=== PATIENT | female | born 1960 | race Caucasian/White ===

== ENCOUNTER 2017-01-07 09:20 | Emergency (ER) | payer BC ==
[2017-01-07 09:34] VITALS: BP 148/86
[2017-01-07] MEDS ORDERED: predniSONE TAB* 20 MG PO ONE (10:29)
--- NOTE | 2017-01-07 10:31 | UC ---
Smooth [place] Benjamin, scribed for Chago Crowder MD on 01/07/17 at 1013 . Skin Complaint HPI - HPI Summary HPI Summary: 56yo female c/o diffuse itchy red rashes since last night. Pt denies any med changes or environmental exposures. Pt was recently recovered from PNA. Finished Abx treatment. Hx includes shingles, HTN, and right ankle fx. - History of Current Complaint Chief Complaint: UCRash Time Seen by Provider: 01/07/17 10:07 Stated Complaint: RASH Hx Obtained From: Patient Onset/Duration: Sudden Onset, Lasting Hours, Still Present Skin Exposure Onset/Duration: Hours Ago Timing: Constant Onset Severity: Mild Current Severity: Mild Location: Diffuse Character: Pruritus, Redness Aggravating: Nothing Alleviating: Nothing Associated Signs & Symptoms: Positive: Negative - Allergy/Home Medications Allergies/Adverse Reactions: Allergies Allergy/AdvReac Type Severity Reaction Status Date / Time Hydrocodone [From Vicodin] Allergy Nausea And Verified 07/01/15 13:49 Vomiting Home Medications: Home Medications Tramadol HCl [Ultram] PRN 01/07/17 [History] Review of Systems Constitutional: Negative Skin: Rash - diffuse red rashes Eyes: Negative ENT: Negative Respiratory: Negative Cardiovascular: Negative Gastrointestinal: Negative Genitourinary: Negative Motor: Negative Neurovascular: Negative Musculoskeletal: Negative Neurological: Negative Psychological: Negative All Other Systems Reviewed And Are Negative: Yes PMH/Surg Hx/FS Hx/Imm Hx Cardiovascular History: Hypertension Respiratory History: Pneumonia - Surgical History Surgical History: Yes Surgery Procedure, Year, and Place: OOPHERECTOMY 1995. HYSTERECTOMY 1995 - Family History Known Family History: Positive: Hypertension, Other - Parkinson's Negative: Cardiac Disease, Diabetes - Social History Occupation: Employed Full-time Lives: With Family - Alcohol Use: Daily Alcohol Amount: 1-2/DARYL Substance Use Type: None Smoking Status (MU): Former Smoker - over 20 years ago Have You Smoked in the Last Year: No When Did the Patient Quit Smoking/Using Tobacco: 30 yrs ago Physical Exam Triage Information Reviewed: Yes Appearance: Well-Appearing, No Pain Distress, Well-Nourished Vital Signs: Initial Vital Signs Temp 98.6 F 01/07/17 09:31 Pulse 103 01/07/17 09:31 Resp 18 01/07/17 09:31 BP 148/86 01/07/17 09:31 Pulse Ox 100 01/07/17 09:31 Vital Signs Reviewed: Yes Eye Exam: Normal ENT: Positive: Normal ENT inspection, Hearing grossly normal, Pharyngeal erythema, TMs normal. Negative: Nasal drainage Neck: Positive: Supple, Nontender Respiratory: Positive: Chest non-tender, Lungs clear, Normal breath sounds, No respiratory distress Cardiovascular: Positive: RRR, No Murmur Abdomen Description: Positive: Nontender, Soft Bowel Sounds: Positive: Present Musculoskeletal: Positive: Strength Intact, ROM Intact Neurological: Positive: Alert, Muscle Tone Normal Psychological: Positive: Age Appropriate Behavior Skin: Positive: rashes - Raised, erythemous patches of 2-3cm in diameter on arms , legs, and trunk that blanching. Course/Dx - Course Course Of Treatment: Reviewed medication lists. - Diagnoses Provider Diagnoses: 1. Hypertension - BP not controlled at this point. RASH, PROBABLE ALLERGIC REACTION Discharge - Discharge Plan Condition: Stable Disposition: HOME Prescriptions: predniSONE TAB* [Deltasone TAB*] 40 mg PO DAILY #8 tab Patient Education Materials: Acute Rash (ED) Referrals: Virginie Novak MD [Primary Care Provider] - Additional Instructions: FOLLOW UP WITH YOUR DOCTOR. GET REEVALUATED FOR ANY WORSENING OF YOUR CONDITION; WORSENING OF RASH, FEVER, YOU FEEL ILL OR QUESTIONS OR CONCERNS. The documentation as recorded by the Smooth marshall Benjamin accurately reflects the service I personally performed and the decisions made by me, Chago Crowder MD.
== END 2017-01-07 10:41 | disposition home or self-care (01) ==
LOC: UCEAST 09:20
DX: R21 Rash and other nonspecific skin eruption (principal); I10 Essential (primary) hypertension; Z88.5 Allergy status to narcotic agent; Z87.01 Personal history of pneumonia (recurrent); Z87.891 Personal history of nicotine dependence
CPT/HCPCS: 99202; G0463; J7512

== ENCOUNTER 2017-01-08 09:49 | Emergency (ER) | payer BC ==
[2017-01-08 10:05] VITALS: BP 166/86
--- NOTE | 2017-01-08 11:09 | UC ---
Allergic Reaction HPI - HPI Summary HPI Summary: Woke in the middle of the night night/Tuesday morning with itchy rash all over. Hd started new deodorant and came into UC yesterday, was given prednisone and they decided it was new deodorant. Pt takes tramadol at bedtime and remembered last night that her pill looks different because of different generic. She took pill last night and felt much worse in the middle of the night again, feeling better after prednisone today. Spoke with pharmacist today and pharmacy can go back to old version after they order it on Tuesday, but pt needs pain Rx to bridge before Tuesday. Only takes a bedtime dose. Uses pain medicine for persistent pain after ankle fx 1 year ago with surgical fixation. - History of Current Complaint Chief Complaint: UCRash Stated Complaint: RASH Time Seen by Provider: 01/08/17 10:40 Hx Obtained From: Patient ?: No Onset/Duration: Sudden Onset, Lasting Days Severity Initially: Moderate Severity Currently: Moderate Location: Diffuse Character: Hives Alleviating Factor(s): Nothing - steroids Associated Signs And Symptoms: Positive: Rash. Negative: Chest Pain, Cough Wheezing, Difficulty Breathing, Hoarseness, Nausea, Syncope, Throat Tightening, Vomiting - Allergies/Home Medications Allergies/Adverse Reactions: Allergies Allergy/AdvReac Type Severity Reaction Status Date / Time Hydrocodone [From Vicodin] Allergy Nausea And Verified 01/08/17 09:54 Vomiting PMH/Surg Hx/FS Hx/Imm Hx Previously Healthy: Yes - Surgical History Surgical History: Yes Surgery Procedure, Year, and Place: OOPHERECTOMY 1995. HYSTERECTOMY 1995 - Family History Known Family History: Positive: Hypertension, Other - Parkinson's Negative: Cardiac Disease, Diabetes - Social History Occupation: Employed Full-time Alcohol Use: Daily Alcohol Amount: 1-2/DARYL Substance Use Type: None Smoking Status (MU): Former Smoker Have You Smoked in the Last Year: No When Did the Patient Quit Smoking/Using Tobacco: 30 yrs ago Review of Systems Constitutional: Negative Skin: Rash Eyes: Negative ENT: Negative Respiratory: Negative Cardiovascular: Negative Gastrointestinal: Negative Genitourinary: Negative Motor: Negative Neurovascular: Negative Musculoskeletal: Negative Neurological: Negative Psychological: Negative All Other Systems Reviewed And Are Negative: Yes Physical Exam Triage Information Reviewed: Yes Appearance: Well-Appearing, No Pain Distress, Well-Nourished Vital Signs: Initial Vital Signs Temp 98.3 F 01/08/17 10:04 Pulse 115 01/08/17 10:04 Resp 16 01/08/17 10:04 BP 166/86 01/08/17 10:04 Pulse Ox 100 01/08/17 10:04 Vital Signs Reviewed: Yes Eye Exam: Normal Eyes: Positive: Conjunctiva Clear ENT Exam: Normal ENT: Positive: Normal ENT inspection, Hearing grossly normal, Pharynx normal, TMs normal Dental Exam: Normal Neck exam: Normal Neck: Positive: Supple, Nontender, No Lymphadenopathy Respiratory Exam: Normal Respiratory: Positive: Chest non-tender, Lungs clear, Normal breath sounds, No respiratory distress, No accessory muscle use Cardiovascular: Positive: No Murmur, Tachycardia Musculoskeletal Exam: Normal Neurological Exam: Normal Neurological: Positive: Alert Psychological Exam: Normal Skin Exam: Other - itchy rash all over arms, legs, neck, groin Allergic Reaction Course/Dx - Differential Dx/Diagnosis Provider Diagnoses: Urticaria. likely drug reaction. elevated blood pressure due to corticosteroid use Discharge - Discharge Plan Condition: Stable Disposition: HOME Prescriptions: oxyCODONE/Acetamin 5/325 MG* [Percocet 5/325 TAB*] 1 tab PO BEDTIME PRN #3 tab MDD 1 PRN Reason: Pain Patient Education Materials: General Allergic Reaction (ED) Referrals: Virginie Novak MD [Primary Care Provider] - Additional Instructions: Continue the prednisone, and you can also take a non-drowsy antihistamine in the morning and diphenhydramine (benadryl) in the evening. Please follow up with your orthopedist as previously scheduled.
== END 2017-01-08 11:11 | disposition home or self-care (01) ==
LOC: UCEAST 09:49
DX: L50.9 Urticaria, unspecified (principal); R03.0 Elevated blood-pressure reading, without diagnosis of hypertension
CPT/HCPCS: 99212; G0463

== ENCOUNTER 2017-04-04 06:04 | Day surgery (SDC) | payer BC ==
--- NOTE | 2017-03-21 09:48 | HP ---
PREOPERATIVE HISTORY AND PHYSICAL: DATE OF ADMISSION: 04/04/17 PROVIDER: Dr. Patrick Yanez * (DICTATED BY JOE ASHLEY) CHIEF COMPLAINT: Right ankle pain. HISTORY OF PRESENT ILLNESS: Mahnaz is a 56-year-old female who was followed by Dr. Yanez for a right ankle bimalleolar fracture. She underwent open reduction internal fixation on 03/24/15. She states that she has done relatively well since the time of her injury; however, anytime she tries to increase her activity and do any sort of significant exercise, she has an increase in ankle pain. She states that this is affecting her quality of life and is interested in surgical intervention for removal of the hardware. PAST MEDICAL HISTORY: Hypertension, attention deficit disorder, and a vitamin D deficiency. PAST SURGICAL HISTORY: Hysterectomy, oophorectomy, and right ankle ORIF. CURRENT MEDICATIONS: 1. Tramadol 50 mg 1 tab p.o. t.i.d. p.r.n. pain. 2. Naproxen 500 mg 1 tab p.o. b.i.d. p.r.n. pain. 3. Amlodipine besylate 5 mg p.o. q. day. 4. Estradiol 1 mg p.o. q. day. 5. Concerta 36 mg 1 p.o. q. day. 6. Caltrate 600 1500 mg by mouth q. day. 7. Multivitamin daily. ALLERGIES: HYDROCODONE. FAMILY HISTORY: Positive for a history of cancer. SOCIAL HISTORY: She lives with her . 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 She has never smoked, she occasionally consumes alcohol, and she does exercise regularly. REVIEW OF SYSTEMS: General: Negative for recent hospitalizations, fevers, chills, night sweats, or weight loss. HEENT: Negative for headache, lightheadedness, balance problems, hearing changes, vision changes, sore throat , runny nose, or frequent nosebleeds. Cardiovascular: Negative for chest or arm pain with exertion, heart attack, heart murmur, or heart palpitations. Negative for embolism or deep vein thrombosis. Respiratory: Negative for chronic cough, shortness of breath with exertion, asthma, or COPD. Gastrointestinal: Negative for heartburn, nausea, vomiting, diarrhea, constipation, or GERD. Genitourinary: Negative for nighttime urination, frequency of urination, urinary tract infections, or kidney problems. Musculoskeletal: Negative for chronic back pain, positive for right ankle fracture. Skin: Negative for rashes, lesions, lumps, or sores. Neurologic: Negative for seizure, stroke, epilepsy, depression, or anxiety. Endocrine: Negative for diabetes or thyroid problems. Hematology: Negative for easy bleeding, bruising, or anemia. PHYSICAL EXAMINATION GENERAL: She is a well-developed, well-nourished, pleasant female in no acute distress at rest. She is alert and oriented x3 with appropriate mood and affect. VITAL SIGNS: The patient is 5 feet 5 inches, 162 pounds. Blood pressure 122/80 , respirations 18, temperature 97.1, pulse is 78. HEENT: Normocephalic, atraumatic. Hearing and vision are grossly intact. NECK: Her trachea is midline. RESPIRATORY: Lungs are clear to auscultation bilaterally. No wheezes, rales, or rhonchi. CARDIOVASCULAR: Regular rate and rhythm. No murmurs, rubs, or gallops. Normal S1, S2. ABDOMEN: Soft, nondistended, nontender. Normal bowel sounds. EXTREMITIES: Exam of the right lower extremity, skin is intact without abrasions or open wounds. She has well-healed incision to the medial and lateral aspects of the ankle. There is no edema, ecchymosis, or gross deformities about the ankle. She has some mild tenderness to palpation to the distal fibula and medial malleolus. She has good hindfoot range of motion with 5/5 strength. Her sensation to light touch is intact. She has a 2+ dorsalis pedis pulse. IMPRESSION: Painful hardware of the right ankle. PLAN: The patient is to undergo right ankle hardware removal by Dr. Yanez on 04/04/17. The risks, benefits, and postoperative course were discussed with the patient at length and she would like to proceed. All of her questions were answered to her full satisfaction. A prescription for oxycodone was sent to her pharmacy for pain. We will follow up with the patient in the postoperative phase. JOE ASHLEY [id number]/[facility] #: [id number] TATIANA
[~2017-04-04 06:04] MED LIST: Buffered Lidocaine 0.9% SYRIN* 5 ML/SYR SYRINGE INTRADERM ONE; Dexamethasone IV* 4 MG/ML 1 ML (4 MG) IV SLOW PU ONE; Famotidine IV* 10 MG/ML 2 ML (20 mg) IV ONE
[2017-04-04] MEDS ORDERED: Buffered Lidocaine 0.9% SYRIN* 5 ML/SYR SYRINGE ONE (06:53)
[2017-04-04] MEDS ORDERED: Famotidine IV* 10 MG/ML 2 ML (20 mg) ONE (06:53)
[2017-04-04] MEDS ORDERED: Dexamethasone IV* 4 MG/ML 1 ML (4 MG) ONE ×2 (06:53→07:02)
[2017-04-04] MEDS ORDERED: ceFAZolin 2 GM PREMIX (*) 50 ML IVPB ONE (06:53)
[2017-04-04] MEDS ORDERED: Ondansetron INJ* 2 MG/ML VIAL ONE (07:02)
[2017-04-04] MEDS ORDERED: fentaNYL* 50 MCG/ML 2 ML VIAL (100 MCG VIAL) ONE ×3 (07:02→09:00)
[2017-04-04] MEDS ORDERED: Midazolam* 1 MG/ML 5 ML VIAL (5 MG) ONE (07:02)
[2017-04-04] MEDS ORDERED: Propofol* 10 MG/ML 20 ML BTL IV PUSH ONE (07:02)
[2017-04-04] MEDS ORDERED: Lidocaine 2% PF * 5 ML VIAL ONE (07:02)
[2017-04-04] MEDS ORDERED: Ketorolac INJ* 30 MG/ML 1 ML VIAL ONE (07:02)
[2017-04-04] MEDS ORDERED: KETAMINE HCL* 50 MG/ML 10 ML VIAL ONE (07:02)
[2017-04-04] MEDS ORDERED: Bupivacaine 0.5% SDV PF* 30 ML VIAL ONE (07:33)
[2017-04-04] MEDS ORDERED: Scopolamine 1.5 mg* PATCH ONE (07:41)
[2017-04-04] MEDS ORDERED: Metoclopramide IV* 5 MG/ML 2 ML VIAL ONE (07:41)
[2017-04-04] MEDS ORDERED: HYDROmorphone* 1 MG/ML 1 ML SYR IV PRN (08:25)
[2017-04-04] MEDS ORDERED: DiMENhydriNATE IV* 50 MG/ML VIAL IV PUSH PRN (08:25)
[2017-04-04] MEDS: fentaNYL* 50 MCG/ML 2 ML VIAL (100 MCG VIAL) IV PRN ×2 (09:05→09:15)
[2017-04-04 10:13] VITALS: BP 134/72
--- NOTE | 2017-04-05 04:40 | OP ---
DATE OF OPERATION: 04/04/17 [facility] DATE OF : 62 SURGEON: Patrick Yanez MD [employer] RE[employer]ERATION TECHNICIAN: Lizzy Eddy PA-C ANESTHESIOLOGIST: Isaias Pitt MD ANESTHESIA: General PRE-OP DIAGNOSIS: Right osteochondral defect, painful hardware, right bimalleolar ankle fracture. POST-OP DIAGNOSIS: OPERATIVE PROCEDURE: Osteochondral debridement with arthroscopy and removal of hardware, right medial malleolus and lateral malleolus. DESCRIPTION OF PROCEDURE: The patient was taken to the operating room where thigh tourniquet was applied. We made an anteromedial and anterolateral ankle portal after infusing 20 cc of saline into the joint. A 2.9-mm shaver blade was used to debride the posteromedial osteochondral defect. Good synovectomy was performed as well as debridement down to fresh subchondral bone. We then opened up medially just behind the portal to expose the two 4.0 mm screws, one with a washer. These were removed with appropriate screwdriver. The lateral tibia was opened longitudinally, where both plates were exposed and removed with small fragment screwdriver. We irrigated both medial and lateral wounds closing with Vicryl and sukumar and a compression dressing plaster splint. [id number]/[facility] #: [id number] [facility]
== END 2017-04-04 10:42 | disposition home or self-care (01) ==
LOC: OR 06:04
PROVIDERS: ATTEND Orthopaedic Surgery
DX: M94.8X7 Other specified disorders of cartilage, ankle and foot (principal); T84.84XA Pain due to internal orthopedic prosthetic devices, implants and grafts, initial encounter; Y79.2 Prosthetic and other implants, materials and accessory orthopedic devices associated with adverse incidents; S82.841D Displaced bimalleolar fracture of right lower leg, subsequent encounter for closed fracture with routine healing; X58.XXXD Exposure to other specified factors, subsequent encounter; I10 Essential (primary) hypertension; F98.8 Other specified behavioral and emotional disorders with onset usually occurring in childhood and adolescence; E55.9 Vitamin D deficiency, unspecified; Z88.5 Allergy status to narcotic agent
CPT/HCPCS: 88300; A9270-GY; J0690; J1100; J1885; J2250; J2405; J2704; J2765; J3010

== ENCOUNTER 2019-01-08 07:03 | Emergency (ER) | payer BC ==
[2019-01-08 07:16] VITALS: BP 160/95
--- NOTE | 2019-01-08 08:07 | ED ---
Lower Extremity - HPI Summary HPI Summary: 58 yr old female with the complaint of right ankle pain. Onset gradual, but worse since yesterday after falling in a step class. The patient states she has had a couple ankle surgeries, and also removal of hardware from same ankle by Dr Phan. The patient states that she has had increased aching of late over the lateral ankle and yesterday she fell breaking her fall with her arm and landing on right hip. She did not twist her ankle. She has no other complaints. - History of Current Complaint Chief Complaint: UCLowerExtremity Stated Complaint: ANKLE INJURY Time Seen by Provider: 01/08/19 07:19 Pain Intensity: 2 - Allergies/Home Medications Allergies/Adverse Reactions: Allergies Allergy/AdvReac Type Severity Reaction Status Date / Time hydrocodone AdvReac Nausea And Verified 01/08/19 07:16 Vomiting Home Medications: Home Medications Aspirin 650 mg PO ONCE PRN 01/08/19 [History Confirmed 01/08/19] PMH/Surg Hx/FS Hx/Imm Hx Cardiovascular History: Reports: Hx Hypertension - controlled with mediaction Respiratory History: Reports: Other Respiratory Problems/Disorders - pt. had pneumonia December 2016 Sensory History: Reports: Hx Contacts or Glasses - READING Denies: Hx Hearing Aid Opthamlomology History: Reports: Hx Contacts or Glasses - READING Neurological History: Reports: Other Neuro Impairments/Disorders - ADHD, controlled with medication - Cancer History Cancer Type, Location and Year: Ovarian CA Hx Chemotherapy: No Hx Radiation Therapy: No - Surgical History Surgery Procedure, Year, and Place: OOPHERECTOMY 1995. HYSTERECTOMY 1995. repair right ankle Mar 2015. Right ankle hardware removal 2016 Hx Anesthesia Reactions: No Infectious Disease History: No Infectious Disease History: Reports: Hx Shingles Denies: Hx Clostridium Difficile, Hx Hepatitis, Hx Human Immunodeficiency Virus (HIV), Hx of Known/Suspected MRSA, Hx Tuberculosis, Hx Known/Suspected VRE , Hx Known/Suspected VRSA, History Other Infectious Disease, Traveled Outside the [place] in Last 30 Days - Family History Known Family History: Positive: Hypertension, Other - Parkinson's Negative: Cardiac Disease, Diabetes - Social History Alcohol Use: Daily Alcohol Amount: 1-2 drinks daily (wine) Substance Use Type: Reports: None Hx Tobacco Use: No Smoking Status (MU): Former Smoker Amount Used/How Often: smoked very socially for less than 10 yrs, less than 1/2 ppd at most Have You Smoked in the Last Year: No Review of Systems Constitutional: Negative Positive: Other - lateral right ankle pain All Other Systems Reviewed And Are Negative: Yes Physical Exam Triage Information Reviewed: Yes Vital Signs On Initial Exam: Initial Vitals Temp Pulse Resp BP Pulse Ox 98 F 105 18 160/95 100 01/08/19 07:09 01/08/19 07:09 01/08/19 07:09 01/08/19 07:09 01/08/19 07:09 Vital Signs Reviewed: Yes Appearance: Positive: Well-Appearing, No Pain Distress Skin: Positive: Warm, Skin Color Reflects Adequate Perfusion Eyes: Positive: Normal, EOMI ENT: Positive: Normal ENT inspection Cardiovascular: Positive: Pulses are Symmetrical in both Upper and Lower Extremities Abdomen Description: Negative: Distended Musculoskeletal: Positive: Other - right ankle without redness. There is minimal STS. INtact pulses DP and PT. SHe has some lateral ankle tenderness over lat malleolus. Neurological: Positive: Sensory/Motor Intact Psychiatric: Positive: Normal Diagnostics - Vital Signs Vital Signs Temp Pulse Resp BP Pulse Ox 01/08/19 07:09 98 F 105 18 160/95 100 - Laboratory Lab Statement: Any lab studies that have been ordered have been reviewed, and results considered in the medical decision making process. - Radiology right ankle Radiology Interpretation Completed By: Radiologist - NAD, chronic changes. Lower Extremity Course/Dx - Course Course Of Treatment: 58 yr old with complex right ankle history. She has crutches. WIll give gel splint. She knows to call Dr Phan today for follow up. - Diagnoses Provider Diagnoses: Hypertension, Right ankle pain Discharge - Sign-Out/Discharge Documenting (check all that apply): Patient Departure All imaging exams completed and their final reports reviewed: Yes - Discharge Plan Condition: Good Disposition: HOME Patient Education Materials: Ankle Sprain (ED), Hypertension (ED) Forms: *Work Release Referrals: Virginie Novak MD [Primary Care Provider] - 2 Days Patrick Yanez MD [Medical Doctor] - - Billing Disposition and Condition Condition: GOOD Disposition: Home
== END 2019-01-08 08:31 | disposition home or self-care (01) ==
LOC: UCEAST 07:03
DX: M25.571 Pain in right ankle and joints of right foot (principal); I10 Essential (primary) hypertension; W19.XXXA Unspecified fall, initial encounter; Y93.A3 Activity, aerobic and step exercise; Y92.9 Unspecified place or not applicable; Z87.39 Personal history of other diseases of the musculoskeletal system and connective tissue; Z98.890 Other specified postprocedural states; Z87.891 Personal history of nicotine dependence
CPT/HCPCS: 99213; G0463

== ENCOUNTER 2019-05-02 14:45 | Emergency (ER) | payer BC ==
[2019-05-02 15:22] VITALS: BP 142/81
--- NOTE | 2019-05-02 15:41 | UC ---
Dental HPI - HPI Summary HPI Summary: 58 year old female with PMH + for HTn presents with 1 month of dental pain. Was mild, attempted to see dentist however had not been seen in 3 years due to no insurance, stated dentist wanted to do cleaning as well as exam. Past 3-4 days, patient noted something "falling out" of tooth with increased pain with chewing afterwards. Noted another "piece" falling out after chewing gum. Has appt to be seen next thurs. Denies fever/ chills/ swelling/ redness. - History of Current Complaint Chief Complaint: UCDentalProblem Stated Complaint: DENTAL PAIN Time Seen by Provider: 05/02/19 15:28 Hx Obtained From: Patient ?: No Onset/Duration: Sudden Onset, Lasting Days Severity: Severe Pain Intensity: 7 Pain Scale Used: 0-10 Numeric Related History: Previous Dental Care on Same Tooth - Allergies/Home Medications Allergies/Adverse Reactions: Allergies Allergy/AdvReac Type Severity Reaction Status Date / Time hydrocodone AdvReac Nausea And Verified 01/08/19 07:16 Vomiting PMH/Surg Hx/FS Hx/Imm Hx Previously Healthy: Yes - Surgical History Surgical History: Yes Surgery Procedure, Year, and Place: OOPHERECTOMY 1995. HYSTERECTOMY 1995. repair right ankle Mar 2015. Right ankle hardware removal 2016 - Family History Known Family History: Positive: Hypertension, Other - Parkinson's, Non- Contributory Negative: Cardiac Disease, Diabetes - Social History Alcohol Use: Weekly Alcohol Amount: 1-2 drinks daily (wine) Substance Use Type: None Smoking Status (MU): Never Smoked Tobacco Amount Used/How Often: smoked very socially for less than 10 yrs, less than 1/2 ppd at most Have You Smoked in the Last Year: No When Did the Patient Quit Smoking/Using Tobacco: 30 yrs ago - Immunization History Most Recent Influenza Vaccination: Not UTD Review of Systems All Other Systems Reviewed And Are Negative: Yes Constitutional: Negative: Fever, Chills, Fatigue ENT: Positive: Dental Pain. Negative: Epistaxis, Sore Throat, Ear Ache Respiratory: Positive: Negative Is Patient Immunocompromised?: No Physical Exam Triage Information Reviewed: Yes Appearance: Well-Appearing, No Pain Distress, Well-Nourished Vital Signs: Initial Vital Signs Temp 98.8 F 05/02/19 15:19 Pulse 83 05/02/19 15:19 Resp 18 05/02/19 15:19 BP 142/81 05/02/19 15:19 Pulse Ox 100 05/02/19 15:19 Vital Signs Reviewed: Yes Eyes: Positive: Conjunctiva Clear ENT: Positive: Pharynx normal, Dental tenderness. Negative: Pharyngeal erythema , Tonsillar swelling, Tonsillar exudate Dental: Positive: Gross Decay/Caries @ - upper molar, Dental Fracture @ - upper molar, Other: - minimal erythema above upper right molar, no abscess seen, + pain with percussion over tooth, tooth appears eroded from prior filling, however filling removed. no gross decay.. Negative: Abscess @, Cellulitis @, Bleeding Neurological Exam: Normal Psychological Exam: Normal Skin Exam: Normal Skin: Positive: Other - no edema, TTP over R facial/ cervical region. Negative : Rashes, Breakdown Dental Complaint Course/Dx - Course Course Of Treatment: Dental pain due to exposed nerve due to filling falling out - Antibiotics to help with possible infection and prevent worsening. - Follow up with dentist next week - Lidocaine as needed for pain, apply topically. - Return with facial swelling, increased pain, fever/ chills, pain with chewing. - Motrin as needed for pain - Differential Dx/Diagnosis Differential Diagnosis/Dx: Odontogenic Pain, Tonsillitis Provider Diagnosis: Dental implant pain Discharge ED - Sign-Out/Discharge Documenting (check all that apply): Patient Departure All imaging exams completed and their final reports reviewed: No Studies - Discharge Plan Condition: Good Disposition: HOME Prescriptions: Lidocaine 2% VISCOUS* 100 ml .SEE ORDER Q4H PRN #1 btl PRN Reason: dental pain Penicillin VK 500 MG TAB(NF) [Penicillin VK 500 mg Tab] 500 mg PO QID #40 tab Patient Education Materials: Toothache (ED) Forms: *Work Release Referrals: iVrginie Novak MD [Primary Care Provider] - Additional Instructions: - Antibiotics to help with possible infection and prevent worsening. - Follow up with dentist next week - Lidocaine as needed for pain, apply topically. - Return with facial swelling, increased pain, fever/ chills, pain with chewing. - Motrin as needed for pain - Billing Disposition and Condition Condition: GOOD Disposition: Home - Attestation Statements Provider Attestation: I was available for consult. This patient was seen by the CHUCK. The patient was not presented to, seen by, or examined by me. -Abraham
[2019-05-02] MEDS ORDERED: Lidocaine 2% VISCOUS* 15 ML UDC SWISH SPIT ONE (15:56)
== END 2019-05-02 16:15 | disposition home or self-care (01) ==
LOC: UCEAST 14:45
DX: M27.69 Other endosseous dental implant failure (principal); Z87.891 Personal history of nicotine dependence; Z88.5 Allergy status to narcotic agent
CPT/HCPCS: 99212; G0463

== ENCOUNTER 2019-06-30 11:39 | Emergency (ER) | payer BC ==
[2019-06-30 12:56] VITALS: BP 155/82
--- NOTE | 2019-06-30 13:20 | UC ---
Dental HPI - HPI Summary HPI Summary: right upper dental pain---has had on/off for 2 months--dental insurance is now active and get to the dentist - History of Current Complaint Chief Complaint: UCDentalProblem Stated Complaint: DENTAL PAIN Time Seen by Provider: 06/30/19 12:52 Hx Obtained From: Patient ?: No Onset/Duration: Gradual Onset, Lasting Weeks - 8, Still Present Pain Intensity: 10 Pain Scale Used: 0-10 Numeric Aggravating Factor(s): Heat, Cold, Chewing Alleviating Factor(s): Nothing Related History: Swelling - right upper derrick - Allergies/Home Medications Allergies/Adverse Reactions: Allergies Allergy/AdvReac Type Severity Reaction Status Date / Time hydrocodone AdvReac Nausea And Verified 06/30/19 12:56 Vomiting Home Medications: Home Medications FLUoxetine CAP* [Prozac CAP*] 40 mg PO DAILY 06/30/19 [History Confirmed ] Ibuprofen [Advil] 400 mg PO ONCE PRN 06/30/19 [History Confirmed 06/30/19] Valsartan/HCTZ 80/12.5(NF) [Diovan Hct 80/12.5(NF)] 1 tab PO QAM 06/30/19 [ History Confirmed 06/30/19] PMH/Surg Hx/FS Hx/Imm Hx Previously Healthy: No Cardiovascular History: Hypertension Psychological History: Anxiety - Surgical History Surgical History: Yes Surgery Procedure, Year, and Place: OOPHERECTOMY 1995. HYSTERECTOMY 1995. repair right ankle Mar 2015. Right ankle hardware removal 2016 - Family History Known Family History: Positive: Hypertension, Other - Parkinson's, Non- Contributory Negative: Cardiac Disease, Diabetes - Social History Occupation: Employed Full-time Lives: With Family Alcohol Use: Daily Alcohol Amount: 1-2 drinks daily (wine) Substance Use Type: Prescribed Smoking Status (MU): Former Smoker Amount Used/How Often: smoked very socially for less than 10 yrs, less than 1/2 ppd at most Have You Smoked in the Last Year: No When Did the Patient Quit Smoking/Using Tobacco: 30 yrs ago - Immunization History Most Recent Influenza Vaccination: Not UTD Review of Systems All Other Systems Reviewed And Are Negative: Yes Constitutional: Positive: Negative Skin: Positive: Negative Eyes: Positive: Negative ENT: Positive: Dental Pain - tooth number 5 Respiratory: Positive: Negative Cardiovascular: Positive: Negative Gastrointestinal: Positive: Negative Genitourinary: Positive: Negative Motor: Positive: Negative Neurovascular: Positive: Negative Musculoskeletal: Positive: Negative Neurological: Positive: Negative Psychological: Positive: Negative Is Patient Immunocompromised?: No Physical Exam Triage Information Reviewed: Yes Appearance: Well-Appearing, No Pain Distress, Well-Nourished Vital Signs: Initial Vital Signs Temp 98.4 F 06/30/19 12:51 Pulse 91 06/30/19 12:51 Resp 18 06/30/19 12:51 BP 155/82 06/30/19 12:51 Pulse Ox 100 06/30/19 12:51 Vital Signs Reviewed: Yes Eye Exam: Normal Eyes: Positive: Conjunctiva Clear ENT Exam: Normal ENT: Positive: Normal ENT inspection, Hearing grossly normal, Dental tenderness - #5, Uvula midline. Negative: Nasal congestion, Tonsillar swelling, Trismus, Muffled voice, Hoarse voice, Sinus tenderness Dental Exam: Other Dental: Positive: Percussion Tenderness @ - #5, Abscess @ Neck exam: Normal Neck: Positive: Supple, Nontender Respiratory Exam: Normal Respiratory: Positive: Chest non-tender, No respiratory distress, No accessory muscle use Cardiovascular Exam: Normal Cardiovascular: Positive: RRR, Pulses Normal, Brisk Capillary Refill Musculoskeletal Exam: Normal Musculoskeletal: Positive: Strength Intact, ROM Intact, No Edema Neurological Exam: Normal Neurological: Positive: Alert, Muscle Tone Normal Psychological Exam: Normal Skin Exam: Normal Dental Complaint Course/Dx - Course Course Of Treatment: amoxicillin, ultram heat/cold for comfort follow with dentist on Tuesday as planned - Differential Dx/Diagnosis Provider Diagnosis: Dental abscess, Pain, dental Discharge ED - Sign-Out/Discharge Documenting (check all that apply): Patient Departure All imaging exams completed and their final reports reviewed: No Studies - Discharge Plan Condition: Stable Disposition: HOME Prescriptions: Amoxicillin PO (*) [Amoxicillin 500 MG CAP*] 500 mg PO TID #30 cap traMADol TAB* [Ultram*] 50 mg PO Q6HR PRN #16 tab MDD 4 PRN Reason: Pain - Moderate Patient Education Materials: Dental Abscess (ED), Hypertension (ED), Toothache (ED) Referrals: Virginie Novak MD [Primary Care Provider] - 2 Weeks Additional Instructions: Follow at dentist on Tuesday as planned - Billing Disposition and Condition Condition: STABLE Disposition: Home - Attestation Statements Provider Attestation: I was available for consult. This patient was seen by the CHUCK. The patient was not presented to , seen by or examined by -Pam Ponce MD
== END 2019-06-30 13:25 | disposition home or self-care (01) ==
LOC: UCEAST 11:39
DX: K04.7 Periapical abscess without sinus (principal); K08.89 Other specified disorders of teeth and supporting structures; I10 Essential (primary) hypertension; F41.9 Anxiety disorder, unspecified; Z88.5 Allergy status to narcotic agent; Z79.899 Other long term (current) drug therapy; Z87.891 Personal history of nicotine dependence
CPT/HCPCS: 99212; G0463